=== PATIENT | female | born 1940 | race Two or more races ===

== ENCOUNTER 2024-01-12 08:45 | Inpatient (IN) | payer OTHER ==
[~2024-01-12] VITALS: Ht 157.5 cm; Wt 61.7 kg
[2024-01-12] MEDS ORDERED: COZAAR25 MG PO (09:03)
[2024-01-12] MEDS ORDERED: LEVOTHYROXINE25 MCG PO (09:03)
[2024-01-12] MEDS ORDERED: CLONAZEPAM1 MG PO (09:04)
[2024-01-12] MEDS ORDERED: TRAZODONE HCL50 MG PO (09:05)
[2024-01-12 09:39] LABS: HEMATOCRIT 38.1 % (36.0-45.00); HEMOGLOBIN 12.7 g/dL (12.0-15.00); MEAN CELL VOLUME 91.4 fL (80.00-100.00); MEAN CORPUSCULAR HEMOGLOBIN 30.6 pg (27.00-32.0); MEAN CORPUSCULAR HGB CONC 33.5 g/dl (32.0-36.0); PLATELET COUNT 277 K/uL (150-450); RED BLOOD COUNT 4.16 M/uL (4.00-6.00); RED CELL DISTRIBUTION WIDTH 13.3 % (11.5-14.5)
[2024-01-12 10:03] LABS: INR 0.94; PARTIAL THROMBOPLASTIN TIME 25.8 SECONDS (22.0-34.0); PROTHROMBIN TIME 9.9 SECONDS (9.0-11.5)
[2024-01-12 10:12] LABS: BILIRUBIN TOTAL 0.37 mg/dL (0.3-1.2); CREATININE SERUM 0.79 mg/dL (0.55-1.02); GFR 69.85; GLOBULINA 4.4 G/DL (2.4-3.5); POTASSIUM 4.25 mEq/L (3.5-5.1); TOTAL PROTEIN 8.4 gm/dL (6.4-8.2)
[2024-01-12 11:40] LABS: PH,URINE 5.5 (5.0-8.0); URINE BILIRRUBIN Negative (NEGATIVE); URINE BLOOD Trace; URINE COLOR Yellow; URINE GLUCOSE Negative (NEGATIVE); URINE LEUKOCYTE Negative; URINE NITRATE Negative; URINE PROTEIN Negative (NEGATIVE); URINE UROBILINOGEN 0.2 E.U./dl
[2024-01-12 11:44] LABS: URINE EPITHELIAL CELLS 5.1 uL (0.0-38.8); URINE RBC 19.8 uL (0.0-20.8); URINE WBC 6.1 uL (0.0-23.2)
[2024-01-12 12:04] LABS: URINE BACTERIA 0 uL (0.0-1933)
[2024-01-12 12:42] LABS: URINE APPEARANCE CLEAR
[2024-01-18] MEDS ORDERED: MORPHINE SULFATE 4 MG/ML VIAL IV ONE (13:30)
[2024-01-18] MEDS ORDERED: BUPIVACAINE HCL 30 ML VIAL IJ ONE (13:30)
[2024-01-18] MEDS ORDERED: METHYLPREDNISOLONE ACETATE 80 MG/ML VIAL IU ONE (13:30)
[2024-01-18] MEDS ORDERED: VANCOMYCIN HCL 1,000 MG VIAL IR ONE (13:30)
[2024-01-18] MEDS ORDERED: TRANEXAMIC ACID 1,000 MG in 0.9 % SODIUM CHLORIDE 100 ML IV ONE (13:30)
[2024-01-18] MEDS ORDERED: CEFAZOLIN SODIUM 2,000 MG in 0.9 % SODIUM CHLORIDE 100 ML IV ONE (13:30)
[2024-01-18] MEDS ORDERED: POVIDONE-IODINE 0.75 OZ PACKET TOP ONE (13:30)
[2024-01-18] MEDS ORDERED: POLYMYXIN B SULFATE 500,000 U VIAL IR ONE (13:30)
[2024-01-18] MEDS ORDERED: VANCOMYCIN HCL 1,000 MG in 0.9 % SODIUM CHLORIDE 250 ML IV ONE (13:30)
[2024-01-18] MEDS ORDERED: KETOROLAC TROMETHAMINE 60 MG VIAL IM ONE (13:30)
[2024-01-18] MEDS ORDERED: MORPHINE SULFATE 2 MG/ML CARTRIDGE IV ONE (15:00)
[2024-01-18] MEDS ORDERED: SODIUM CHLORIDE 0.45 % 1,000 ML IV SCH (15:00)
[2024-01-18] MEDS ORDERED: MORPHINE SULFATE 4 MG/ML CARTRIDGE IV PRN (15:00)
[2024-01-18] MEDS ORDERED: ONDANSETRON HCL 2 MG/ML VIAL IV PRN (15:00)
[2024-01-18 16:48] LABS: HEMATOCRIT 33.5 % (36.0-45.00); HEMOGLOBIN 11.3 g/dL (12.0-15.00); RED BLOOD COUNT 3.61 M/uL (4.00-6.00)
[2024-01-18] MEDS ORDERED: CEFAZOLIN SODIUM 1,000 MG VIAL IV SCH (18:00)
[2024-01-19 03:14] LABS: HEMATOCRIT 35.6 % (36.0-45.00); MEAN CELL VOLUME 93.4 fL (80.00-100.00); MEAN CORPUSCULAR HGB CONC 33.5 g/dl (32.0-36.0); PLATELET COUNT 201 K/uL (150-450); RED BLOOD COUNT 3.81 M/uL (4.00-6.00); RED CELL DISTRIBUTION WIDTH 12.7 % (11.5-14.5)
[2024-01-19 03:15] LABS: HEMOGLOBIN 11.9 g/dL (12.0-15.00); MEAN CORPUSCULAR HEMOGLOBIN 31.2 pg (27.00-32.0)
[2024-01-19] MEDS ORDERED: LEVOTHYROXINE SODIUM 25 MCG TABLET PO SCH (06:00)
[2024-01-19] MEDS ORDERED: TRAMADOL HCL 50 MG TABLET PO PRN (08:30)
[2024-01-19] MEDS ORDERED: IRON FUM,PS/FOLIC/BCOMP,C NO.9 1 CAP CAPSULE PO SCH (09:00)
[2024-01-19] MEDS ORDERED: RIVAROXABAN 10 MG TAB PO SCH (09:00)
[2024-01-19] MEDS ORDERED: SENNA/DOCUSATE SODIUM 1 TAB TABLET PO SCH (09:00)
[2024-01-19] MEDS ORDERED: BACITRACIN 28.35 GM OINT.TUBE TOP SCH (09:00)
[2024-01-19] MEDS ORDERED: LOSARTAN POTASSIUM 25 MG TABLET PO SCH (09:00)
[2024-01-19] MEDS ORDERED: CEFAZOLIN SODIUM 1,000 MG VIAL IV SCH (14:00)
[2024-01-20 06:33] LABS: HEMOGLOBIN 10.8 g/dL (12.0-15.00); MEAN CELL VOLUME 91.5 fL (80.00-100.00); MEAN CORPUSCULAR HEMOGLOBIN 30.9 pg (27.00-32.0); MEAN CORPUSCULAR HGB CONC 33.8 g/dl (32.0-36.0); PLATELET COUNT 229 K/uL (150-450); RED CELL DISTRIBUTION WIDTH 12.8 % (11.5-14.5)
[2024-01-20] MEDS ORDERED: TRAMADOL HCL50 MG PO (06:38)
[2024-01-20] MEDS ORDERED: XARELTO10 MG PO (06:38)
[2024-01-20] MEDS ORDERED: Septra Ds Tablet PO (06:38)
[2024-01-20] MEDS ORDERED: INTEGRA PLUS C1 EACH PO (06:38)
[2024-01-20] MEDS ORDERED: SULFAMETHOXAZOLE/TRIMETHOPRIM DS 1 TAB PO SCH (09:00)
== END 2024-01-20 16:38 | disposition designated cancer center or children's hospital (05) | DRG 470 ==
LOC: O/R 01-18 06:44 → SURG 01-18 08:45 → OB/GYN 01-18 16:38
PROVIDERS: ADMIT Orthopaedic Surgery Sports Medicine; ATTEND Orthopaedic Surgery Sports Medicine
PROC: 0SRC0J9 Replacement of Right Knee Joint with Synthetic Substitute, Cemented, Open Approach (ICD-10-PCS; principal; 2024-01-18 11:45)
DX: M17.11 Unilateral primary osteoarthritis, right knee (principal); E03.9 Hypothyroidism, unspecified